=== PATIENT | female | born 2000 | race Caucasian/White ===

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

== ENCOUNTER → 2020-02-05 12:24 | Outpatient (CLI) | payer MEDICAID, SELFPAY ==
[2020-02-05 14:22] LABS: HCG,Quantitative 62591 mIU/ml (0-5.42)
== END ==
PROVIDERS: Visit Provider Obstetrics & Gynecology
DX: Z32.00 Encounter for pregnancy test, result unknown (principal)
CPT/HCPCS: 36415; 84702

== ENCOUNTER → 2020-02-12 13:45 | Outpatient (CLI) | payer MEDICAID, SELFPAY ==
--- NOTE | 2020-02-12 13:45 | US_ITS ---
PROCEDURE: US OB TRANSVAGINAL CLINICAL INDICATION: US OB Dates COMPARISON: US US OB FOLLOW UP from 06/05/2019 FINDINGS: An intrauterine gestational sac is present with a pole with a crown-rump length of 1.56cm correlating to gestational age of 8weeks. heart tones are present with an FHR of 164bpm. Yolk sac is noted. There is a 1.8 cm corpus luteum cyst on the right IMPRESSION: Live IUP at 8 weeks Estimated due date by Ultrasound is 09/23/2020 Dictated by: Gabriel Lanier MD 02/12/2020 16:00 Gabriel Lanier MD in [facility] 02/12/2020 16:00
== END ==
PROVIDERS: PCP Nurse Practitioner; Visit Provider Obstetrics & Gynecology
DX: O26.841 Uterine size-date discrepancy, first trimester (principal)
CPT/HCPCS: 76817

== ENCOUNTER → 2020-02-16 10:40 | Outpatient (CLI) | payer MEDICAID, SELFPAY ==
[2020-02-16 11:56] LABS: Basophils % 0.4 % (0.1-2.0); Eosinophils # 0.1 K/mm3 (0.0-0.4); Eosinophils % 0.7 % (0.1-12.0); Hematocrit 36.8 % (37.0-47.0); Hemoglobin 12.1 g/dL (12.2-16.2); Lymphocytes # 2.4 K/mm3 (0.7-4.5); Lymphocytes % 31.5 % (10-50); Mean Corpuscular Hemoglobin 28.8 pg (27.0-31.2); Mean Corpuscular Volume 87.3 fl (81-99); Mean Platelet Volume 8.2 fl (7.4-10.4); Monocytes # 0.4 K/mm3 (0.1-1.0); Monocytes % 4.9 % (1.7-9.3); Neutrophils # 4.7 K/mm3 (1.8-7.8); Neutrophils % 62.5 % (37.0-80.0); Platelet Count 226 K/mm3 (142-424); Red Blood Count 4.21 M/mm3 (4.20-5.40); Red Cell Distribution Width 13.1 % (11.5-17.5); White Blood Count 7.5 K/mm3 (4.5-13.0)
[2020-02-17 13:18] LABS: HIV Screen 4th Generation wRfx Non Reactive (Non Reactive); Hepatitis B Surface Antigen Negative (Negative); Hepatitis C Antibody <0.1 s/co ratio (0.0-0.9); Rapid Plasma Reagin Ab Titer Non Reactive (NonRea<1:1); Rubella Antibodies, IgG 3.95 index (Immune >0.99)
[2020-02-20 12:23] LABS: Neisseria gonorrhoeae, NAA Negative (Negative)
== END ==
PROVIDERS: Visit Provider Obstetrics & Gynecology
DX: Z34.90 Encounter for supervision of normal pregnancy, unspecified, unspecified trimester (principal)
CPT/HCPCS: 36415; 85025; 86592; 86703; 86762; 86850; 87340; 87380; 87491; 87591; G0432

== ENCOUNTER → 2020-05-06 14:31 | Outpatient (CLI) | payer MEDICAID, SELFPAY ==
--- NOTE | 2020-05-06 14:31 | US_ITS ---
PROCEDURE: US OB /MATERNAL DETAIL Referring Doctor: Vera Fry Patient Age:20Y CLINICAL INDICATION: US OB Complete the COMPARISON: US US OB TRANSVAGINAL from 02/12/2020--with CRL at that time = 8 weeks 0 day FINDINGS: Single viable intrauterine gestation. Cephalic position.. Active fetus Placenta: High anteriorplacenta grade 1. No previa There is average amount fluid. The cervix appears satisfactory. Closed and measuring 3.8 7 cm in length. Complete survey performed and was unremarkable on the submitted images as in PACS. Adequate survey scan although specific images of the LVOT and humerus were not included. No discrete anomalies identified on survey imaging by technologist. Active fetus. Three-vessel cord with satisfactory umbilical cord insertion. 4- chamber heart noted. Cine images heart and tracing included Survey of brain & ventricles Unremarkable. Face and neck survey unremarkable. Diaphragm and chest views unremarkable. Abdomen: Both kidneys noted and unremarkable. Stomach noted and satisfactory. Spine: Survey of the spine satisfactory with no anomalies identified nor imaged. Both arms and legs noted. Appears to be a most likely female fetus Amniotic Fluid: Adequate. Maternal adnexa: No encountered additional findings. Measurements: Average ultrasound age 20weeks 1day. Gestational Age 20weeks 1day Estimated due date by ultrasound age 0509/22/2020. Estimated weight 326ggrams. BPD = 20 week 2 day OFD = 20 week 4 day HC = 19 week 5 day AC = 20 weeks 0 day FL = 20 week 1 day Growth Percentile= 43Percent% Heart Rate = 150bpm Cerebellum = 20 week 1 day; nuchal fold 1.82 mm Humerus = no humerus measurements included on image set HC/AC is 1.17 CI is 0.78 FL/BPD is 0.68 FL/AC is 0.22 IMPRESSION: Single viable intrauterine gestation Cephalic presentation. Anterior high placenta. 20 weeks 1 day Average Ultrasound Age. Estimated due date by ultrasound age 0509/22/2020. Today's anatomical survey-unremarkable WNL Dictated by: Buddy Moya MD 05/08/2020 11:09 Buddy Moya MD in [place] 05/08/2020 11:09
== END ==
PROVIDERS: PCP Nurse Practitioner; Visit Provider Obstetrics & Gynecology
DX: Z36.0 Encounter for antenatal screening for chromosomal anomalies (principal)
CPT/HCPCS: 76811

== ENCOUNTER → 2020-07-04 09:16 | Outpatient (CLI) | payer MEDICAID, SELFPAY ==
[2020-07-04 10:15] LABS: Basophils % 0.2 % (0.1-2.0); Eosinophils # 0.1 K/mm3 (0.0-0.4); Eosinophils % 1.1 % (0.1-12.0); Hematocrit 36.3 % (37.0-47.0); Hemoglobin 11.8 g/dL (12.2-16.2); Lymphocytes # 2.4 K/mm3 (0.7-4.5); Lymphocytes % 23.4 % (10-50); Mean Corpuscular HGB Conc 32.5 g/dL (31.8-35.4); Mean Corpuscular Hemoglobin 29.1 pg (27.0-31.2); Mean Corpuscular Volume 89.6 fl (81-99); Mean Platelet Volume 8.9 fl (7.4-10.4); Monocytes # 0.4 K/mm3 (0.1-1.0); Monocytes % 4.1 % (1.7-9.3); Neutrophils # 7.3 K/mm3 (1.8-7.8); Neutrophils % 71.2 % (37.0-80.0); Platelet Count 221 K/mm3 (142-424); Red Blood Count 4.05 M/mm3 (4.20-5.40); Red Cell Distribution Width 14.2 % (11.5-17.5); White Blood Count 10.2 K/mm3 (4.5-13.0)
[2020-07-04 10:33] LABS: Glucose,Fasting 92 mg/dl (74-100)
[2020-07-04 11:23] LABS: Glucose 1 Hour 119 mg/dL (74-100)
== END ==
PROVIDERS: Visit Provider Obstetrics & Gynecology
DX: Z34.90 Encounter for supervision of normal pregnancy, unspecified, unspecified trimester (principal)
CPT/HCPCS: 36415; 82951; 85025

== ENCOUNTER → 2020-08-02 14:10 | Outpatient (CLI) | payer MEDICAID, SELFPAY ==
--- NOTE | 2020-08-02 14:10 | US_ITS ---
PROCEDURE: US OB FOLLOW UP CLINICAL INDICATION: SGA FINDINGS: The following parameters are obtained: There is a single live fetus present which is in cephalic presentation. The cervix is closed and measures 4 cm. Average ultrasound age is Average 32weeks 5days Estimated due date by ultrasound is 09/22/2020. Estimated weight is 1,896g. This is 25 percentile BPD: 33weeks 6days OFD: 32 weeks 6 days HC: 33weeks AC: 32weeks FL: 31weeks 4days heart rate: 138bpm bpm. HC/AC: 1.07 Cephalic index: 0.8 FL/BPD: 0.72 FL/AC: 0.22 Amniotic fluid index: 11.76cm The femur length is 31weeks 4days No obvious anomalies evident. Placenta: Anterior and grade 1 Cervix: Closed measuring 4 cm IMPRESSION: There is a single live fetus present in cephalic presentation. Average ultrasound age 32 weeks 5 days with an estimated weight 1896 g which is 25th percentile percentile. Normal amniotic fluid index of 12 cm. Dictated by: Gabriel Lanier MD 08/02/2020 16:38 Gabriel Lanier MD in [place] 08/02/2020 16:38
== END ==
PROVIDERS: PCP Nurse Practitioner; Visit Provider Obstetrics & Gynecology
DX: O36.5990 Maternal care for other known or suspected poor fetal growth, unspecified trimester, not applicable or unspecified (principal)
CPT/HCPCS: 76816

== ENCOUNTER → 2020-08-26 16:04 | Outpatient (CLI) | payer MEDICAID, SELFPAY | PROVIDERS: Visit Provider Obstetrics & Gynecology | DX: Z34.90 Encounter for supervision of normal pregnancy, unspecified, unspecified trimester (principal) | CPT/HCPCS: 86403 ==

== ENCOUNTER → 2020-09-11 09:55 | Outpatient (CLI) | payer MEDICAID, SELFPAY ==
[2020-09-11 10:35] LABS: Basophils % 0.2 % (0.1-2.0); Eosinophils # 0.1 K/mm3 (0.0-0.4); Eosinophils % 0.6 % (0.1-12.0); Hemoglobin 10.6 g/dL (12.2-16.2); Lymphocytes # 2.6 K/mm3 (0.7-4.5); Lymphocytes % 28.4 % (10-50); Mean Corpuscular HGB Conc 34.1 g/dL (31.8-35.4); Mean Corpuscular Hemoglobin 28.5 pg (27.0-31.2); Mean Corpuscular Volume 83.5 fl (81-99); Mean Platelet Volume 9.4 fl (7.4-10.4); Monocytes # 0.4 K/mm3 (0.1-1.0); Monocytes % 4.2 % (1.7-9.3); Neutrophils # 6.1 K/mm3 (1.8-7.8); Neutrophils % 66.7 % (37.0-80.0); Platelet Count 202 K/mm3 (142-424); Red Blood Count 3.71 M/mm3 (4.20-5.40); Red Cell Distribution Width 13.7 % (11.5-17.5); White Blood Count 9.2 K/mm3 (4.5-13.0)
[2020-09-11 11:06] LABS: Chloride 107 mmol/L (98-107)
[2020-09-11 11:07] LABS: Potassium 4.5 mmoL/L (3.5-5.1); Sodium 134 mmol/L (136-145)
[2020-09-11 11:09] LABS: Alanine Aminotransferase 11 U/L (12-78); Alkaline Phosphatase 167 U/L (38-126); Aspartate Amino Transferase 21 U/L (14-36); Bilirubin,Total 0.6 mg/dl (0.2-1.3); Blood Urea Nitrogen 8 mg/dl (7-17); Estimated Glomerular Filt Rate 203 ml/min (>60); GFR (African American) 246 ML/MIN (>60)
[2020-09-11 11:10] LABS: Albumin Level 2.9 g/dl (3.5-5.0); Anion Gap 8.5 mEq/L (5-15); Calcium 8.3 mg/dl (8.4-10.2); Carbon Dioxide 23 mmol/L (22.0-30.0); Globulin 2.9 g/dL (1.3-3.2); Glucose 82 mg/dl (74-100); Total Protein,Serum 5.8 g/dl (6.3-8.2)
== END ==
PROVIDERS: Visit Provider Obstetrics & Gynecology
DX: Z34.90 Encounter for supervision of normal pregnancy, unspecified, unspecified trimester (principal)
CPT/HCPCS: 36415; 80053; 85025; 86850; U0003

== ENCOUNTER 2020-09-12 05:45 | Inpatient (IN) | payer MEDICAID, SELFPAY ==
[2020-09-12] VITALS (19 sets, daily range): BP systolic 116–161; BP diastolic 60–99; PULSE 60–80; RESP 12–20; TEMP 36.1–36.9; O2SAT 96–100; BMI 45.7
--- NOTE | 2020-09-12 07:46 | HMH.OBAPHP ---
OB - H&P: HPI Antepartum - History of Present Illness Chief complaint: repeat c section History of present illness: 20 yo @ 38 07/14 admitted for repeat CS Procedure was initially scheduled at 39 wks but was moved up due to gestational hypertension Irregular contractions but no signs of labor No LOF or vaginal bleeding Normal movement [facility] History Medical History: Reports:: Anxiety, Depression, Gastroesophageal Reflux Disease(GERD), Migraine *Have you ever received a pneumonia vaccine?: No *Have you received a flu vaccine this season?: No Other Medical History: Reports: Hypothyroidism, Other Laterality Cases: Bilateral: Tonsillectomy Other Surgeries: Yes: (failure to progress) Amputation: No Fractures: Yes - *Social History Smoking Status: Never smoker Alcohol Intake: never Alcohol Intake Frequency:: holidays/special occasions only Substance Use Type: denies use *Occupational Status:: unemployed Housing: house Household Members: family *Travel in the last 8 weeks: None - Psychiatric History Pschychiatric History:: Reports:: Anxiety, Depression Family Hx:: No significant family history Para: 1 Review of Systems - Review of Systems Review of systems:: pertinent systems reviewed and negative unless documented below - *Genitourinary Reports other (irregular contractions), Denies abnormal vaginal bleeding Meds Home Medications Medication Instructions Recorded Confirmed Type prenat.vits,nickie,[id number] 1 tab PO DAILY 02/16/20 09/12/20 History Esomeprazole Magnesium 20 mg PO DAILY 09/12/20 09/12/20 History Allergies Allergy/AdvReac Type Severity Reaction Status Date / Time No Known Allergies Allergy Verified 09/09/20 10:44 OB - H&P: Exam - Physical Exam Vital signs: Temp Pulse Resp BP Pulse Ox 98.5 F 67 20 139/95 H 98 09/12/20 07:44 09/12/20 07:44 09/12/20 07:44 09/12/20 07:44 09/12/20 07:44 - Constitutional no acute distress - Routine HEENT Exam Head: Present: normocephalic, atraumatic Eye: Absent: conjunctival icterus ENT: Present: mucous membranes moist - Routine Neck Exam Present: supple - Routine Chest/Breast/Axilla Exam Chest wall: Absent: tenderness - Routine Respiratory Exam Present: CTA bilaterally - Routine Cardiovascular Exam Present: RRR - Routine Abdominal Exam Present: soft. Absent: tenderness, distended - Routine Exam Comments: deferred - Routine Extremities Exam Present: edema (1+) - Routine Back/Spine/Pelvis Exam Back/Spine: Absent: CVA tenderness - Routine Skin Exam Absent: rash - Routine Neurological Exam Present: alert, oriented X3 - Routine Psychiatric Exam Present: normal affect OB - Results - Labs Labs: Urine 09/12/20 Range/Units 06:00 Urine Color Yellow (Yellow) Urine Appearance Sl cloudy (Clear) Urine pH 6.0 (5.0-8.5) Ur Specific [place] >= 1.030 (1.005-1.030) Urine Protein Negative (Negative) Urine Glucose (UA) Negative (Negative) OB - A/P Antepartum (1) 38 weeks gestation of Status: Acute (2) Short interval between pregnancies affecting , antepartum Status: Acute (3) Gestational hypertension Status: Acute (4) Previous section Status: Acute (5) Obesity, morbid, BMI 40.0-49.9 Status: Acute - Additional Plan Additional Information:: Admission for repeat CS status reassuring
[2020-09-12 07:58] LABS: Microscopic, Urine URINE MICROSCOPIC (MICROSCOPIC)
[2020-09-12 07:59] LABS: Appearance,Urine SL CLOUDY (Clear); Bilirubin,Urine Negative (Negative); Blood, Urine Negative (Negative); Color,Urine YELLOW (Yellow); Glucose,Urine (UA) Negative (Negative); Ketones,Urine Negative (Negative); Leukocyte Esterase,Urine Negative (Negative); Nitrate,Urine Negative (Negative); Protein,Urine Negative (Negative); Specific Gravity, Urine >= 1.030 (1.005-1.030)
[2020-09-12 08:22] LABS: Barbiturates Screen,Urine Negative ng/ml (<200)
[2020-09-12 08:23] LABS: Amphetamine/Metha Screen,Urine Negative ng/ml (<1000); Benzodiazepines Screen,Urine Negative ng/ml (<200)
[2020-09-12 08:24] LABS: Cocaine Screen,Urine Negative ng/ml (<300)
[2020-09-12 08:25] LABS: Cannabinoid Screen,Urine Negative ng/ml (<50); Methadone Screen,Urine Negative ng/ml (<300)
[2020-09-12 08:26] LABS: Phencyclidine Screen,Urine Negative ng/ml (<25)
[2020-09-12 08:27] LABS: Opiate Screen,Urine Negative ng/ml (<300)
--- NOTE | 2020-09-12 10:59 | HMH.OPNOTE ---
Date of procedure: 09/12/20 Pre-op Diagnosis:: 1. 38 3/7 weeks gestation 2. Gestational hypertension 3. Previous C Section 4. Maternal obesity Post-op Diagnosis:: same Procedure performed:: Low transverse c section Surgeon:: Vera Fry MD Blueprint Developer(s):: Payal Enrique CONSTRUCTION CODE ADMINISTRATOR:: Other Anesthesia: spinal Estimated blood loss (mL): 600 Operative findings:: moderate pelvic adhesions vigorous liveborn infant Operative note:: The patient was taken to the OR and spinal was administered without difficulty. She was prepped and draped in normal sterile fashion. A pfannenstiel skin incision was made with the scalpel and carried down to the fascia. The fascia was incised in the midline and sharply dissected off the rectus muscles. The muscles were in the midline and the peritoneum was entered sharply and extended bluntly. The bladder adhesions were moderate and extended up beyond the level of the lower uterine segment. Extensive sharp lysis of adhesions were performed until the bladder flap could be created. The uterus was incised in the lower uterine segment in a transverse fashion and extended bluntly. Amniotomy was performed and clear fluid noted. The infant was delivered in controlled fashion, without complication or shoulder dystocia. A nuchal cord x 1 was reduced during delivery. The infant was vigorous at and handed to awaiting pediatricians for evaluation after cord clamped and cut. Cord blood was collected and a cord segment was preserved. The placenta was manually extracted and noted to be intact. The uterus was repaired with 0-vicryl in a running/locked fashion. The peritoneum was closed with 2-0 vicryl in a running fashion. The fascia was closed with #1 vicryl in a running fashion. The subcutaneous fat was closed with 2-0 vicryl in an interrupted fashion. The skin was closed with stratafix suture. The patient tolerated the procedure well. Sponge, lap, needle and instrument counts were correct x 2. She was taken to PACU awake and in stable condition. Condition: stable Disposition: PACU Specimens:: placenta Complications:: none
--- NOTE | 2020-09-12 10:59 | HMH.PHAVTE ---
[facility] Pharmacy VTE Monitoring - Patient Demographics Admission date: 09/12/20 Report Date: 09/12/20 Time: 10:59 Allergies/Adverse Reactions: Patient Allergies No Known Allergies Allergy (Verified 09/09/20 10:44) Height: 1.6 m Weight: 117.027 kg Patient Problems: Current Active Problems 38 weeks gestation of (Acute) Gestational hypertension (Acute) Short interval between pregnancies affecting , antepartum (Acute) Previous section (Acute) Obesity, morbid, BMI 40.0-49.9 (Acute) - VTE Risk Clinical Trial Participant: No - Prophylaxis VTE Prophylaxis Ordered?: Yes Types of VTE Prophylaxis: IPCS Knee High (POST OP)
--- NOTE | 2020-09-12 13:21 | P.PN_ITS ---
[facility] Anesthesia Checklist - Patient Identification Patient Identification: Arm Band - Structural Data Admitted From: Inpatient Planned Operative Procedure/s: Scheduled C section Consent for Planned Operative Procedure(s) Verified: Yes Verified Documents: Surgical Consent, History and Physical - NPO Status Verified Time NPO: 00:00 - Airway Assessment C-Spine Mobility Assessed: Yes TMJ Mobility Assessed: Yes Dentition: Good Dentition - Neurological Assessment Level of Consciousness: Awake, Alert - Anesthesia Plan Anesthesia Risk discussed: Yes Anesthesia Plan: Verified ASA Class: II Anesthesia Type: Spinal [facility] History Medical History: Reports:: Anxiety, Depression, Gastroesophageal Reflux Disease(GERD), Migraine *Have you ever received a pneumonia vaccine?: No *Have you received a flu vaccine this season?: No Other Medical History: Reports: Hypothyroidism, Other Anesthesia experience/problems:: None Laterality Cases: Bilateral: Tonsillectomy Other Surgeries: Yes: (failure to progress) Amputation: No Fractures: Yes - *Social History Smoking Status: Never smoker Alcohol Intake: never Alcohol Intake Frequency:: holidays/special occasions only Substance Use Type: denies use *Occupational Status:: unemployed Housing: house Household Members: family *Travel in the last 8 weeks: None - Psychiatric History Pschychiatric History:: Reports:: Anxiety, Depression Family Hx:: No significant family history Para: 1
--- NOTE | 2020-09-12 13:22 | HMH.ANESI ---
[facility] Anesthesia Record Part I Intake, IV Amount: 2,000 Estimated blood loss (mL): 600 Urine output (mL): 200 Blood Products used (#): none Blood Pressure: 128/72 SaO2: 97 Pulse Rate: 71 Respiratory Rate: 12 Temperature: 97.1 F Patient is:: Awake, Drowsy Stable to PACU at:: 10:12
[2020-09-12 15:25] LABS: Microscopic,Cath URINE MICROSCOPIC (MICROSCOPIC)
[2020-09-12 15:30] LABS: Appearance,Urine/Cath CLEAR (Clear); Bilirubin,Cath Negative (Negative); Blood, Urine/Cath TRACE-I (Negative); Color,Urine/Cath YELLOW (Yellow); Glucose,Urine/Cath (UA) Negative (Negative); Ketones,Urine/Cath Negative (Negative); Leukocyte Esterase,Cath Negative (Negative); Nitrate,Cath Negative (Negative); PH,Urine/Cath 6.5 (5.0-8.5); Protein,Urine/Cath Negative (Negative); Urobilinogen,Cath 0.2 EU/dl (0.2)
[2020-09-12 15:37] LABS: Bacteria,Urine/Cath TRACE /lpf; RBC,Urine/Cath Occasional # /hpf (0-3); Squamous Epithelial Ur./Cath Occasional #/hpf (0-5); WBC,Urine/Cath Occasional #/hpf (0-3)
[2020-09-13 06:46] LABS: Hematocrit 27.1 % (37.0-47.0)
[2020-09-13 08:00] VITALS: BP 123/58; PULSE 80; RESP 18; TEMP 36.5; O2SAT 97
--- NOTE | 2020-09-13 09:31 | HMH.ANESII ---
[facility] Anesthesia Record Part II Discharge Time: 10:32 Destination: Obstetric PACU nurse assessment reviewed?: Yes Patient Condition:: Good Anesthesia Complications:: None Swallowing reflex intact?: Yes Cyanosis?: No Blood Pressure: 126/78 Pulse Rate: 66 Temperature: 97 F Mental Status: Alert & Oriented Pain level:: 0 Nausea and/or vomitting:: None Intake, IV Amount: 0
[2020-09-13 09:32] VITALS: BP 126/78; PULSE 66; TEMP 36.1
--- NOTE | 2020-09-13 11:16 | P.PN_ITS ---
Internal Medicine - PN: Subj *Date: 09/13/20 *Time: 11:16 Interval history: POD #1 repeat CS no unusual complaints tolerating regular diet ambulating and voiding without difficulty pain control sufficient asymptomatic with acute blood loss anemia Exam Vital signs and Labs for Last 24 Hours: Temp Pulse Resp BP Pulse Ox 97 F L 66 18 126/78 97 09/13/20 09:32 09/13/20 09:32 09/13/20 08:00 09/13/20 09:32 09/13/20 08:00 Laboratory Results - last 24 hr 09/12/20 09:00: Urine Color Yellow, Urine Appearance Clear, Urine pH 6.5, Ur Specific [place] 1.010, Urine Protein Negative, Urine Glucose (UA) Negative, Urine Ketones Negative, Urine Blood Trace-i, Urine Nitrate Negative, Urine Bilirubin Negative, Urine Urobilinogen 0.2, Ur Leukocyte Esterase Negative, Urine RBC Occasional, Urine WBC Occasional, Ur Squamous Epith Cells Occasional, Urine Bacteria Trace 09/13/20 06:30: Hgb 9.0 L, Hct 27.1 L I & O for Last 24 hours: Intake & Output 09/10/20 09/11/20 09/12/20 09/13/20 11:59 11:59 11:59 11:59 Intake Total 1999 Balance 1999 Weight 258 lb 0.006 oz Narrative: CONSTITUTIONAL: no acute distress HEENT: mucous membranes moist PULMONARY: breathing unlabored without audible wheezes CV: no tachycardia or visible JVD; normal LE peripheral pulses ABD: soft, ND; appropriately tender but no rebound/guarding : fundus firm at/below umbilicus SKIN: incision well approximated with no drainage, erythema or induration EXT: 1+ edema LEs NEURO: alert/oriented, no altered mental status PSYCH: appropriate mood and demeanor Assessment and Plan (1) 38 weeks gestation of Status: Acute Category: Medical Code(s): Z3A.38 - 38 weeks gestation of (2) Short interval between pregnancies affecting , antepartum Status: Acute Category: Medical Code(s): O09.899 - Supervision of other high risk pregnancies, unspecified trimester (3) Gestational hypertension Status: Acute Category: Medical Code(s): O13.9 - Gestational [- induced] hypertension without significant proteinuria, unspecified trimester (4) Previous section Status: Acute Category: Surgical Code(s): Z98.891 - History of uterine scar from previous surgery (5) Obesity, morbid, BMI 40.0-49.9 Status: Acute Category: Medical Code(s): E66.01 - Morbid (severe) obesity due to excess calories (6) Acute blood loss anemia Status: Acute Category: Medical Code(s): D62 - Acute posthemorrhagic anemia - Assessment and plan all Dx Assessment and Plan for all problems:: Routine postop care FeSO4 supplementation
[2020-09-13 11:58] VITALS: BP 138/68; PULSE 76; RESP 18; TEMP 36.4; O2SAT 96
[2020-09-13 16:00] VITALS: BP 144/72; PULSE 82; RESP 18; TEMP 36.5; O2SAT 99
[2020-09-13 19:36] VITALS: BP 133/83; PULSE 74; RESP 18; TEMP 36.8; O2SAT 100
[2020-09-14 00:12] VITALS: BP 144/87; PULSE 78; RESP 18; TEMP 36.7; O2SAT 97
[2020-09-14 05:00] VITALS: BP 167/80; PULSE 89; RESP 18; TEMP 36.7; O2SAT 99
[2020-09-14 08:02] VITALS: BP 138/85; PULSE 100; RESP 18; TEMP 36.5; O2SAT 98
--- NOTE | 2020-09-14 12:26 | HMH.DCSUM ---
General - General Admission date:: 09/12/20 Discharge date: 09/14/20 Hospital Course Hospital Course: Admitted for repeat c section at 38 weeks for gestational hypertension bp stable tolerating regular diet ambulating and voiding without difficulty asymptomatic with anemia discharged home on pod #2 in stable condition Rhogam Administration: Not Indicated Objective Vital signs: Temp Pulse Resp BP Pulse Ox 97.7 F 100 H 18 138/85 98 09/14/20 08:02 09/14/20 08:02 09/14/20 08:02 09/14/20 08:02 09/14/20 08:02 Narrative: CONSTITUTIONAL: no acute distress HEENT: mucous membranes moist PULMONARY: breathing unlabored without audible wheezes CV: no tachycardia or visible JVD; normal LE peripheral pulses ABD: soft, ND; appropriately tender but no rebound/guarding : fundus firm at/below umbilicus SKIN: incision well approximated with no drainage, erythema or induration EXT: 1+ edema LEs NEURO: alert/oriented, no altered mental status PSYCH: appropriate mood and demeanor without anxiety/depression DS: Diagnosis - Discharge Diagnosis (1) 38 weeks gestation of Status: Acute (2) Short interval between pregnancies affecting , antepartum Status: Acute (3) Gestational hypertension Status: Acute (4) Previous section Status: Acute (5) Obesity, morbid, BMI 40.0-49.9 Status: Acute (6) Acute blood loss anemia Status: Acute Discharge Plan - Patient Discharge Instructions ACTIVITY: Continue current activity DIET: regular diet Additional Instructions: No heavy lifting, no strenuous activity. Nothing in the vagina for 6 weeks. No driving for 2 weeks or while taking prescription narcotics. Patient Instructions: Depression, Hemorrhage, DI for , DI for Pre-eclampsia, Surgical Site Infection, [facility] Post Discharge Instructions, Preventing the Spread of Coronavirus Discharge Instructions - Follow up Plan Follow up with: Vera Fry MD [Staff Physician] - Disposition: Home, Self-Care Condition at discharge:: Stable Home Medications: Home Medications Medication Instructions Recorded Confirmed Type prenat.vits,nickie,chx-ottu-yesju 1 tab PO DAILY 02/16/20 09/12/20 History Esomeprazole Magnesium 20 mg PO DAILY 09/12/20 09/12/20 History Ibuprofen [Motrin 400mg 800 mg PO Q6HP PRN #40 tab 09/14/20 Rx tablet] Oxycodone HCl [OxyIR 5mg tablet] 10 mg PO Q4HP PRN #30 tablet 09/14/20 Rx Prescriptions/Medication Reconciliation: New Ibuprofen [Motrin 400mg tablet] 800 mg PO Q6HP PRN #40 tab PRN Reason: MILD TO MODERATE PAIN Oxycodone HCl [OxyIR 5mg tablet] 10 mg PO Q4HP PRN #30 tablet PRN Reason: Moderate To Severe Pain Continued prenat.vits,nickie,[id number] 1 tab PO DAILY Esomeprazole Magnesium 20 mg PO DAILY - Problem Reconciliation Problems Reviewed?: Yes
== END 2020-09-14 14:22 | disposition home or self-care (01) | DRG 788 ==
PROVIDERS: Admitting Provider Obstetrics & Gynecology; PCP Nurse Practitioner; Visit Provider Obstetrics & Gynecology
PROC: 10D00Z1 Extraction of Products of Conception, Low, Open Approach (ICD-10-PCS; CPT 59514; principal; 2020-09-12 08:30)
DX: O13.3 Gestational [pregnancy-induced] hypertension without significant proteinuria, third trimester (principal); O34.211 Maternal care for low transverse scar from previous cesarean delivery; N85.8 Other specified noninflammatory disorders of uterus; Z3A.37 37 weeks gestation of pregnancy; O69.81X0 Labor and delivery complicated by cord around neck, without compression, not applicable or unspecified; Z37.0 Single live birth
CPT/HCPCS: 59514; 36415; 59025; 80053; 80305; 81001; 85014; 85018; 85025; 86850; J2405; U0003

== ENCOUNTER 2020-10-18 23:41 | Emergency (ER) | payer MEDICAID, SELFPAY ==
[2020-10-18 23:58] LABS: Microscopic, Urine URINE MICROSCOPIC (MICROSCOPIC)
[2020-10-19] VITALS: BP 148/90; PULSE 90; RESP 16; TEMP 37; O2SAT 100; BMI 42.1
--- NOTE | 2020-10-19 00:01 | CT_ITS ---
PROCEDURE INFORMATION: Exam: CT Abdomen And Pelvis With Contrast Exam date and time: 10/19/2020 12:01 AM Age: 20 years old Clinical indication: Nausea and vomiting; Abdominal pain; Localized; Prior surgery; Surgery date: 1-6 months; Patient HX: Upper abd pain with n/v for 4 hrs, csection 5 weeks ago TECHNIQUE: Imaging protocol: Computed tomography of the abdomen and pelvis with contrast. Radiation optimization: All CT scans at this facility use at least one of these dose optimization techniques: automated exposure control; mA and/or kV adjustment per patient size (includes targeted exams where dose is matched to clinical indication); or iterative reconstruction. Contrast material: ISOVUE; Contrast volume: 75 ml; Contrast route: IV; COMPARISON: US OB FOLLOW UP 08/02/2020 2:16 PM FINDINGS: Liver: Normal. No mass. Gallbladder and bile ducts: Normal. No calcified stones. No ductal dilation. Pancreas: Normal. No ductal dilation. Spleen: Normal. No splenomegaly. Adrenal glands: Normal. No mass. Kidneys and ureters: Normal. No hydronephrosis. Stomach and bowel: Unremarkable. No obstruction. No mucosal thickening. Appendix: The appendix is not definitely identified, but there are no primary or secondary CT findings to suggest a diagnosis of acute appendicitis. Intraperitoneal space: Unremarkable. No free air. No significant fluid collection. Vasculature: Unremarkable. No abdominal aortic aneurysm. Lymph nodes: Unremarkable. No enlarged lymph nodes. Urinary bladder: Unremarkable as visualized. Reproductive: Left ovarian cystic structure compatible with dominant follicle measures 2.7 cm in diameter. Postsurgical changes compatible with , with nonspecific inflammatory changes at the anterior aspect of the uterus without rim enhancing fluid collections. Bones/joints: Unremarkable. No acute fracture. Soft tissues: Normal. IMPRESSION: Postsurgical changes compatible with , with nonspecific inflammatory changes at the anterior aspect of the uterus without rim enhancing fluid collections.
[2020-10-19 00:02] LABS: Urine Pregnancy, HCG Qual. Negative (Negative)
[2020-10-19 00:12] LABS: Appearance,Urine SL CLOUDY (Clear); Bilirubin,Urine Negative (Negative); Blood, Urine 3+ (Negative); Color,Urine YELLOW (Yellow); Glucose,Urine (UA) Negative (Negative); Ketones,Urine Negative (Negative); Leukocyte Esterase,Urine Negative (Negative); Nitrate,Urine Negative (Negative); PH,Urine 5.5 (5.0-8.5); Protein,Urine TRACE (Negative); Specific Gravity, Urine >= 1.030 (1.005-1.030)
[2020-10-19 00:13] LABS: RBC,Urine 50-100 #/hpf (0-3)
[2020-10-19 00:14] LABS: Bacteria,Urine 2+ /lpf; Mucus,Urine 2+ /lpf
[2020-10-19 00:17] LABS: MANUAL DIFFERENTIAL MANUAL DIFFERENTIAL (MANUAL DIFF)
[2020-10-19 00:24] LABS: Basophils % 0.3 % (0.1-2.0); Eosinophils # 0.1 K/mm3 (0.0-0.4); Eosinophils % 0.6 % (0.1-12.0); Hematocrit 30.8 % (37.0-47.0); Hemoglobin 10.3 g/dL (12.2-16.2); Lymphocytes # 2.6 K/mm3 (0.7-4.5); Lymphocytes % 22.2 % (10-50); Mean Corpuscular HGB Conc 33.4 g/dL (31.8-35.4); Mean Corpuscular Hemoglobin 27.4 pg (27.0-31.2); Mean Corpuscular Volume 82.1 fl (81-99); Mean Platelet Volume 8.5 fl (7.4-10.4); Monocytes # 0.4 K/mm3 (0.1-1.0); Monocytes % 3.7 % (1.7-9.3); Neutrophils # 8.6 K/mm3 (1.8-7.8); Neutrophils % 73.1 % (37.0-80.0); Platelet Count 253 K/mm3 (142-424); Red Blood Count 3.75 M/mm3 (4.20-5.40); Red Cell Distribution Width 13.4 % (11.5-17.5); White Blood Count 11.7 K/mm3 (4.5-13.0)
[2020-10-19 00:27] LABS: Alanine Aminotransferase 19 U/L (12-78); Albumin Level 4.1 g/dl (3.5-5.0); Albumin/Globulin Ratio 1.3 (1.1-1.8); Alkaline Phosphatase 130 U/L (38-126); Amylase 39 U/L (30-110); Anion Gap 9.9 mEq/L (5-15); Aspartate Amino Transferase 30 U/L (14-36); Bilirubin,Total 0.5 mg/dl (0.2-1.3); Blood Urea Nitrogen 12 mg/dl (7-17); Calcium 8.1 mg/dl (8.4-10.2); Carbon Dioxide 28 mmol/L (22.0-30.0); Chloride 106 mmol/L (98-107); Creatinine Clearance Estimated 93 mL/min (50-200); Estimated Glomerular Filt Rate 91 ml/min (>60); GFR (African American) 111 ML/MIN (>60); Globulin 3.1 g/dL (1.3-3.2); Glucose 96 mg/dl (74-100); Lipase 58 U/L (23-300); Potassium 3.9 mmoL/L (3.5-5.1); Sodium 140 mmol/L (136-145); Total Protein,Serum 7.2 g/dl (6.3-8.2)
[2020-10-19 00:32] LABS: C-Reactive Protein 51.1 mg/L (0-4)
[2020-10-19 00:48] LABS: Eosinophils % 1 % (0-3); Lymphocytes % 20 % (10-50); Monocytes % 7 % (2-9); Neutrophils % 72 % (42-76); Platelet Estimate Normal; RBC Morphology Normal; Total Cells Counted 100
[2020-10-19 00:50] LABS: Procalcitonin < 0.030 ng/mL (0.0-2.0)
[2020-10-19 01:03] LABS: Erythrocyte Sedimentation Rate 101 mm/hr (0-20)
[2020-10-19 01:11] VITALS: BP 107/58; PULSE 76; O2SAT 98
[2020-10-19 01:30] VITALS: BP 110/65; PULSE 84; O2SAT 98
--- NOTE | 2020-10-19 01:39 | HMH.EDNVD ---
ED Disposition Clinical Impression: Abdominal pain Qualifiers: Abdominal location: right upper quadrant Qualified Code(s): R10.11 - Right upper quadrant pain UTI (urinary tract infection) Qualifiers: Urinary tract infection type: site unspecified Hematuria presence: without hematuria Qualified Code(s): N39.0 - Urinary tract infection, site not specified Disposition: Home, Self-Care Condition on Discharge: Good Instructions: DI for Acute Abdominal Pain Additional Instructions: fluids and use meds and see surg for follow up and call pcp about urine culture Prescriptions: cephALEXin [cephALEXin 500mg capsule*] 500 mg PO TID #30 cap Transmission Status: Pending to [facility] Referrals: Bre Nunes MD [Primary Care Provider] - Grzegorz Darden MD [Staff Physician] - - Critical Care Critical Care Time: No Attestation: On 10/18/20, the high probability of a clinically significant, sudden or life threatening deterioration of the following system(s) required my full and direct attention, intervention and personal management. The time I documented below is in addition to time spent performing reported procedures but includes the following listed in this critical care notation. Medical Decision Making - Medical Records Medical records reviewed: Yes: I reviewed the patient's medical records. - Anand Inquiry Pt receiving controlled substance: No Vital Signs: 10/19/20 00:00 10/19/20 01:11 Temperature 98.6 F Temperature Source Oral Pulse Rate 76 Pulse Rate [Right] 90 Respiratory Rate 16 Blood Pressure 107/58 L Blood Pressure [Right Arm] 148/90 H Blood Pressure Mean [Right Arm] 109 Blood Pressure Source [Right Arm] Automatic Cuff Blood Pressure Position [Right Arm] Supine 02 Sat by Pulse Oximetry 100 98 Oxygen Delivery Method Room Air - Lab Data Lab results reviewed: Yes: I reviewed the patient's lab results. Lab Results 10/18/20 23:53: Urine Color Yellow, Urine Appearance Sl cloudy, Urine pH 5.5, Ur Specific [place] >= 1.030, Urine Protein Trace, Urine Glucose (UA) Negative, Urine Ketones Negative, Urine Blood 3+, Urine Nitrate Negative, Urine Bilirubin Negative, Urine Urobilinogen 1.0, Ur Leukocyte Esterase Negative, Urine RBC 50-100, Urine WBC 5-10, Ur Squamous Epith Cells 3-5, Urine Bacteria 2+, Urine Mucus 2+ 10/18/20 23:53: Urine HCG, Qual Negative 10/19/20 00:03: WBC 11.7, RBC 3.75 L, Hgb 10.3 L, Hct 30.8 L, MCV 82.1, MCH 27.4, MCHC 33.4, RDW 13.4, Plt Count 253, MPV 8.5, Neut % (Auto) 73.1, Lymph % (Auto) 22.2, [place] % (Auto) 3.7, Eos % (Auto) 0.6, Baso % (Auto) 0.3, Neut # (Auto) 8.6 H, Lymph # (Auto) 2.6, [place] # (Auto) 0.4, Eos # (Auto) 0.1, Baso # (Auto) 0.0, Total Counted 100, Neutrophils % (Manual) 72, Lymphocytes % (Manual) 20, Monocytes % (Manual) 7, Eosinophils % (Manual) 1, Platelet Estimate Normal, RBC Morphology Normal 10/19/20 00:03: ESR 101 H 10/19/20 00:03: Sodium 140, Potassium 3.9, Chloride 106, Carbon Dioxide 28, Anion Gap 9.9, BUN 12, Creatinine 0.80, Estimated Creat Clear 93, Estimated GFR 91, Est GFR ( Amer) 111, Glucose 96, Calcium 8.1 L, Total Bilirubin 0.5, AST 30, ALT 19, Alkaline Phosphatase 130 H, C-Reactive Protein 51.1 H, Total Protein 7.2, Albumin 4.1, Globulin 3.1, Albumin/Globulin Ratio 1.3, Amylase 39, Lipase 58 10/19/20 00:03: Procalcitonin < 0.030 Result diagrams: 10/19/20 00:03 10/19/20 00:03 Orders (Tests/Meds): ED MEDICATIONS Generic Name Dose Route Start Last Admin Trade Name Freq PRN Reason Stop Dose Admin Sodium Chloride 1,000 mls @ 999 mls/hr 10/19/20 00:30 10/19/20 00:40 Sod Chlor 0.9% 1000ml Bag IV 10/19/20 01:30 999 mls/hr .Q1H1M LEXI Administration Ceftriaxone Sodium 1 gm/ 50 mls @ 100 mls/hr 10/19/20 00:30 10/19/20 00:52 Sodium Chloride IV 11/02/20 00:29 100 mls/hr Q24H LEXI Administration Protocol Sodium Chloride 8 ml 10/19/20 00:16 Sodium Chloride 0.9% 10ml Vial IV 11/18/20 00:15 NEEDE
[2020-10-19 01:59] VITALS: BP 110/79; PULSE 79; RESP 16; TEMP 37; O2SAT 98
[2020-10-19 02:00] VITALS: BP 115/82; PULSE 71; O2SAT 97
== END 2020-10-19 02:30 | disposition home or self-care (01) ==
PROVIDERS: Emergency Provider Emergency Medicine; PCP Nurse Practitioner
DX: R10.11 Right upper quadrant pain (principal); N39.0 Urinary tract infection, site not specified; F41.8 Other specified anxiety disorders; K21.9 Gastro-esophageal reflux disease without esophagitis; E03.9 Hypothyroidism, unspecified
CPT/HCPCS: 74177; 80053; 81001; 81025; 82150; 83690; 84145; 85007; 85014; 85018; 85048; 85049; 85651; 86140; 87086; 96365; 96366; 96375; 99283; J2405; Q9967

== ENCOUNTER → 2020-11-13 09:43 | Outpatient (CLI) | payer MEDICAID, SELFPAY ==
--- NOTE | 2020-11-13 09:43 | US_ITS ---
PROCEDURE: US GALLBLADDER CLINICAL INDICATION: Right upper quad pain COMPARISON: No exams were available for comparison FINDINGS: Pancreas: Pancreatic tail not well delineated due to overlying bowel gas. Liver: Unremarkable. There is appropriate direction of blood flow within a non dilated portal vein. Right kidney: Unremarkable appearing. No hydronephrosis. Gallbladder: Gallbladder is filled with stones. No gallbladder wall thickening, pericholecystic fluid, or biliary dilatation is evident. Common bile duct is 3 mm. IMPRESSION: Cholelithiasis Dictated by: Gabriel Lanier MD 11/13/2020 11:29 Gabriel Lanier MD in [facility] 11/13/2020 11:29
== END ==
PROVIDERS: PCP Nurse Practitioner; Visit Provider Surgery
DX: R10.11 Right upper quadrant pain (principal)
CPT/HCPCS: 76705

== ENCOUNTER → 2020-11-19 13:01 | Outpatient (CLI) | payer MEDICAID, SELFPAY ==
[2020-11-19 13:20] LABS: Basophils # 0.1 K/mm3 (0-0.2); Basophils % 1.4 % (0.1-2.0); Eosinophils # 0.1 K/mm3 (0.0-0.4); Eosinophils % 1.8 % (0.1-12.0); Hematocrit 34.9 % (37.0-47.0); Hemoglobin 11.4 g/dL (12.2-16.2); Lymphocytes # 2.8 K/mm3 (0.7-4.5); Lymphocytes % 35.4 % (10-50); Mean Corpuscular HGB Conc 32.6 g/dL (31.8-35.4); Mean Corpuscular Hemoglobin 26.7 pg (27.0-31.2); Mean Corpuscular Volume 82.1 fl (81-99); Mean Platelet Volume 8.5 fl (7.4-10.4); Monocytes # 0.3 K/mm3 (0.1-1.0); Monocytes % 3.5 % (1.7-9.3); Neutrophils # 4.5 K/mm3 (1.8-7.8); Neutrophils % 57.9 % (37.0-80.0); Platelet Count 320 K/mm3 (142-424); Red Blood Count 4.25 M/mm3 (4.20-5.40); Red Cell Distribution Width 13.7 % (11.5-17.5); White Blood Count 7.8 K/mm3 (4.5-13.0)
[2020-11-19 13:47] LABS: Urine Pregnancy, HCG Qual. Negative (Negative)
[2020-11-19 13:50] LABS: HCG,Quantitative < 2 mIU/ml (0-5.42)
[2020-11-19 14:12] LABS: Chloride 106 mmol/L (98-107); Sodium 140 mmol/L (136-145)
[2020-11-19 14:13] LABS: Potassium 4.3 mmoL/L (3.5-5.1)
[2020-11-19 14:15] LABS: Alanine Aminotransferase 29 U/L (12-78); Albumin/Globulin Ratio 1.3 (1.1-1.8); Alkaline Phosphatase 163 U/L (38-126); Anion Gap 12.3 mEq/L (5-15); Aspartate Amino Transferase 21 U/L (14-36); Bilirubin,Total 0.4 mg/dl (0.2-1.3); Blood Urea Nitrogen 10 mg/dl (7-17); Calcium 8.5 mg/dl (8.4-10.2); Carbon Dioxide 26 mmol/L (22.0-30.0); Estimated Glomerular Filt Rate 127 ml/min (>60); GFR (African American) 154 ML/MIN (>60); Globulin 3.2 g/dL (1.3-3.2); Glucose 83 mg/dl (74-100); Total Protein,Serum 7.2 g/dl (6.3-8.2)
== END ==
PROVIDERS: Surgery; Visit Provider Obstetrics & Gynecology
DX: Z30.40 Encounter for surveillance of contraceptives, unspecified (principal); K80.20 Calculus of gallbladder without cholecystitis without obstruction
CPT/HCPCS: 36415; 80053; 81025; 84702; 85025

== ENCOUNTER → 2020-12-09 14:40 | Outpatient (CLI) | payer MEDICAID, SELFPAY | PROVIDERS: Visit Provider Surgery | DX: Z01.812 Encounter for preprocedural laboratory examination (principal); Z11.52 Encounter for screening for COVID-19; K80.20 Calculus of gallbladder without cholecystitis without obstruction | CPT/HCPCS: U0003 ==

== ENCOUNTER 2020-12-10 07:01 | Day surgery (SDC) | payer MEDICAID, SELFPAY ==
[2020-12-04 11:14] VITALS: BMI 41.8
[2020-12-10] VITALS (14 sets, daily range): BP systolic 122–155; BP diastolic 71–91; PULSE 54–68; RESP 15–18; TEMP 36.3–43; O2SAT 94–100
[2020-12-10 07:27] LABS: Urine Pregnancy, HCG Qual. Negative (Negative)
--- NOTE | 2020-12-10 08:51 | P.PN_ITS ---
[facility] Anesthesia Checklist - Patient Identification Patient Identification: Arm Band - Structural Data Admitted From: Home Planned Operative Procedure/s: Laparoscopic Cholecystectomy Consent for Planned Operative Procedure(s) Verified: Yes Verified Documents: Surgical Consent, History and Physical - NPO Status Verified Time NPO: 00:00 - Additional verifications Anesthesia Reactions: No Hx Blood Transfusions: No Blood Transfusion Reaction: No - Airway Assessment C-Spine Mobility Assessed: Yes (mp2) TMJ Mobility Assessed: Yes Dentition: Good Dentition - Neurological Assessment Level of Consciousness: Awake, Alert - Anesthesia Plan Anesthesia Risk discussed: Yes Anesthesia Plan: Verified ASA Class: III Anesthesia Type: General [facility] History I have reviewed the patient's past medical history: Yes Medical History: Reports:: Anxiety, Depression, Gastroesophageal Reflux Disease(GERD), Migraine Denies:: Cancer, Diabetes Mellitus Type 1, Diabetes Mellitus Type 2, Internal Pacemaker, MRSA, Seizures *Have you ever received a pneumonia vaccine?: No *Have you received a flu vaccine this season?: No Other Medical History: Reports: Hypothyroidism, Other. Denies: Blood Transfusion Reaction Anesthesia experience/problems:: nac Laterality Cases: Bilateral: Tonsillectomy Other Surgeries: Yes: . No: Pacemaker Amputation: No Fractures: Yes - *Social History Last grade of school completed: High school graduate Smoking Status: Never smoker Alcohol Intake: never Alcohol Intake Frequency:: holidays/special occasions only Substance Use Type: denies use *Occupational Status:: unemployed Housing: house Household Members: family *Travel in the last 8 weeks: None - Psychiatric History Pschychiatric History:: Reports:: Anxiety, Depression Family Hx:: No significant family history
--- NOTE | 2020-12-10 09:33 | XR_ITS ---
PROCEDURE: XR CHOLANGIOGRAM OPERATIVE CLINICAL INDICATION: CHOLANGIOGRAM COMPARISON: No exams were available for comparison FINDINGS: Fluoroscopy time: 26 seconds Single image submitted demonstrates good filling of the common bile duct with contrast flowing into the duodenum. Artifact is noted in the right upper quadrant medially from the trocar obscuring detail in this region and extending to the common duct area. No obvious contrast extravasation. IMPRESSION: Overlying artifact. Common duct has an unremarkable appearance with the good flow contrast into the duodenum. Dictated by: Gabriel Lanier MD 12/10/2020 10:18 Gabriel Lanier MD in OV 12/10/2020 10:18
--- NOTE | 2020-12-10 10:17 | HMH.ANESI ---
[facility] Anesthesia Record Part I Intake, IV Amount: 1,700 Estimated blood loss (mL): 10 Urine output (mL): 0 Blood Products used (#): none Blood Pressure: 146/75 SaO2: 94 Pulse Rate: 68 Respiratory Rate: 16 Temperature: 99.3 F Patient is:: Drowsy, Stable Stable to PACU at:: 10:15
--- NOTE | 2020-12-10 10:24 | HMH.OPNOTE ---
Date of procedure: 12/10/20 Pre-op Diagnosis:: Symptomatic gallstones Post-op Diagnosis:: Same Procedure performed:: Laparoscopic cholecystectomy with intraoperative cholangiogram Surgeon:: Grzegorz Darden MD WEB PRODUCTION MANAGER:: Phillip Pollock Anesthesia: GETJazmin Estimated blood loss (mL): 20 Clinical Note:: Patient is a 20-year-old female from [facility] referred by emergency department for gallbladder issues. She had actually been seen in the emergency department on 11/09/2019 with persistent epigastric pain radiating through to her back. SHe had undergone gallbladder ultrasound at that time which revealed multiple gallstones. She was managed as an outpatient. She did not have any issues for quite some time. She did have a and underwent by Dr. Fry on 09/12/2020. Subsequently she was seen in the emergency department on 10/18/2020 with epigastric and right upper quadrant pain. She had a CT scan which revealed no evidence of any calcified gallstones. Given the fact that her symptoms seem to be consistent with gallbladder she was referred for surgical consultation. She did undergo outpatient gallbladder ultrasound on 11/13/2020 which revealed gallbladder filled with gallstones with normal common bile duct. Patient states that she had an additional attack of symptoms after ER evaluation with epigastric pain and associated nausea and vomiting. Operative findings:: Patient had a somewhat thickened distended gallbladder. She had a laterally displaced cystic duct which was attenuated. Operative note:: Patient was taken to the operating room. She was given preoperative intravenous antibiotics. In the operating room she was placed in a supine position. General anesthesia was induced. Abdomen was prepped and draped in the standard surgical fashion. Subumbilical skin incision was made and while performing abdominal wall lift Veress needle was inserted. Ultimately with repositioning of the Veress needle adequate insufflation pressures were achieved and CO2 pneumoperitoneum was achieved to 15 mmHg. 11 mm optical trocar was inserted at the umbilicus. She was positioned in reverse Trendelenburg left side down. A couple 5 mm trochars were inserted in the right upper abdomen. 10 mm trocar was inserted in the epigastrium. Liver was elevated and gallbladder was grasped retracted anteriorly and superiorly over the dome of the liver. Infundibulum of the gallbladder was retracted anterior laterally. Blunt dissection was carried out the neck of the gallbladder bluntly incising the visceral peritoneum and sweeping fatty tissues inferiorly. Limited dissection was carried out laterally of the peritoneum using DILLAN ultrasonic robotic janak. There was noted to be some thin bile emanating. Inspection revealed what appeared to be laterally displaced cystic duct. To ensure that this was true cystic duct decision was made to perform intraoperative cholangiogram. Through a small 2 mm incision in the right upper abdomen taut cholangiocatheter introducer was inserted. Cholangiocatheter was manipulated into the duct ostomy were secured with a Hemoclip. Intraoperative cholangiogram was performed which revealed this to be a rather shortened cystic duct. Common duct revealed no evidence of any injury or compromise. Patient was then repositioned and cholangiocatheter was removed. Cystic duct was multiply clipped and sharply divided. Dissection was carried out identifying the cystic artery which was carefully coagulated and divided. Gallbladder was dissected free from the liver in a retrograde fashion using DILLAN ultrasonic harmonic janak. Gallbladder was placed within an Endo Catch retrieval device. It was removed from the peritoneal cavity via the umbilical trocar site which required some minor extension of the fascial incision for delivery. She was noted to have several moderate sized stones. Limited use of electrocautery was used on the liver bed to ensure h
--- NOTE | 2020-12-10 11:45 | SUR.PHASEII ---
SENT E-SCRIPT FOR NORCO AT HOME TO CLINIC PHARMACY, NO ORDERS FOR PAIN MED IN POST OP. PT TOLERATING WELL, GETTING DRESSED, AT BEDSIDE.
--- NOTE | 2020-12-10 12:15 | HMH.ANESII ---
[facility] Anesthesia Record Part II Discharge Time: 10:55 Destination: Surgical Day Care (OP Surgery) PACU nurse assessment reviewed?: Yes Patient Condition:: Good Anesthesia Complications:: None Swallowing reflex intact?: Yes Cyanosis?: No Blood Pressure: 122/77 Pulse Rate: 58 Temperature: 99.3 F Mental Status: Alert & Oriented Pain level:: 0 Nausea and/or vomitting:: None Intake, IV Amount: 0
== END 2020-12-10 11:46 | disposition home or self-care (01) ==
LOC: OR 07:02
PROVIDERS: PCP Nurse Practitioner; Visit Provider Surgery
PROC: 0FT44ZZ Resection of Gallbladder, Percutaneous Endoscopic Approach (ICD-10-PCS; CPT 47562; principal; 2020-12-10 08:30)
DX: K80.80 Other cholelithiasis without obstruction (principal); K21.9 Gastro-esophageal reflux disease without esophagitis; G43.909 Migraine, unspecified, not intractable, without status migrainosus; F41.9 Anxiety disorder, unspecified; F32.9 Major depressive disorder, single episode, unspecified; E03.9 Hypothyroidism, unspecified; Z90.49 Acquired absence of other specified parts of digestive tract; Z79.3 Long term (current) use of hormonal contraceptives
CPT/HCPCS: 47563; 74300; 81025; 96374; J2405; J2710

== ENCOUNTER 2022-10-26 09:37 | Emergency (ER) | payer MEDICAID, SELFPAY ==
[2022-10-26 10:50] VITALS: BP 132/91; PULSE 111; RESP 20; TEMP 37.3; O2SAT 99; BMI 40.9
[2022-10-26 10:51] LABS: UTC Strep Screen (Rapid) Positive (Negative)
--- NOTE | 2022-10-26 11:27 | EXP.UTC ---
Discharge Plan Disposition Patient Disposition: Home, Self-Care Condition: Good Prescriptions Prescriptions: New amoxicillin 875 mg tablet 875 mg PO Q12H Qty: 20 0RF fluticasone propionate [Flonase Allergy Relief] 50 mcg/actuation spray,suspension 1 - 2 spray intranasal DAILY Qty: 16 0RF Rx Instructions: administer into each nostril daily No Action Kyleena 17.5 mcg/24 hrs (5 yrs) 19.5 mg intrauterine device 19.5 mg INTRAUTERI DAILY Referrals Follow up/Referrals: Sebas Barrow MD [Primary Care Provider] - See instructions Activity Restrictions/Add. Instructions Additional Instructions/Restrictions: *Monitor Temp, Over the counter Motrin or Tylenol as directed/as needed Tylenol every 4 hours and Motrin every 6 hours (as long as your family doctor has told you that you can take it) for fever or pain. and straight to ER if unable to lower temp less than 101.0 after medication given *Warm salt water gargles may help to soothe the throat *Throat Lozenges? *Warm fluids like tea with honey may help to soothe the throat? *Sleep elevated *Humidifier/Vaporizer *If you did not take Penicillin shot or was unable to, start taking antibiotic immediately and make sure that you take it for the FULL length of time although you should start to feel better in 24-48 hours *change toothbrush and toothpaste 24-48 hours after starting to take antibiotics so you do not reinfect yourself Monitor Temp. Tylenol and/or Ibuprofen as needed. ER if fever is no less than 101 despite alternating Tylenol and Ibuprofen * Encourage fluids, water, Gatorade, powerade, pedialyte if infant/toddler/or child *Cold fluids, popsicles and ice cream may feel good on his throat Follow up IMMEDIATELY for new or worsening symptoms or no Noticeable improvement over the next 48-72 hours. 911 for difficulty breathing or swallowing Clinical Impressions Clinical Impression: Strep throat Instructions Patient Instructions: DI for Strep Throat Discharge ED Provider: Usha Jean Baptiste [facility] [place] HPI General Stated complaint: Fever, sore throat, headache, ear pain Mode of Arrival: Ambulatory Source of Information: Patient Limitations: No Limitations Time Seen by Provider: 10/26/22 11:27 Description of Symptoms (Recalled from Triage Doc. by RN): PATIENT C/O FEVER, SORE THROAT, EARS RINGING, HEADACHE AND CHILLS SINCE YESTERDAY HEENT Symptoms (Recalled from RN notes): Yes Resp Symptoms (Recalled from RN notes): No Skin Symptoms (Recalled from RN notes): No MS Symptoms (Recalled from RN notes): No Functional Status (Recalled from RN notes): WNL History of Present Illness Provider Complaint: Patient states that she started feeling bad yesterday States that she has been having sore throat, ringing in ears on and off, headache feeling achy and chills States that today her throat was hurting worse States that she took a medication last year for sinus infection that she had a reaction too thinks it may have been cefdnir Related Data Home Medications Medication Instructions Recorded Confirmed levonorgestrel 17.5 mcg/24 hrs 19.5 mg intrauterine DAILY 11/19/20 12/30/20 (5yrs) 19.5mg intrauterine device control (Kyleena) Previous Rx's Medication Instructions Recorded amoxicillin 875 mg tablet 875 mg PO Q12H #20 tabs 10/26/22 fluticasone propionate 50 1 - 2 spray intranasal DAILY #16 10/26/22 mcg/actuation nasal grams spray,suspension (Flonase Allergy Relief) Allergies Allergy/AdvReac Type Severity Reaction Status Date / Time No Known Allergies Allergy Verified 12/30/20 10:24 Worker's Comp Is this a Worker's Comp case?: No PFSH [facility] Disclaimer: The information contained in this section may have been updated after the patient was seen, as this information can be updated by other users. Medical History (Updated 10/26/22 @ 11:30 by Usha Jean Baptiste APRN) Asthma Hypertension Migraine Surgical H
[2022-10-26 11:34] VITALS: BP 132/91; PULSE 111; RESP 20; TEMP 37.3; O2SAT 99
== END 2022-10-26 11:36 | disposition home or self-care (01) ==
PROVIDERS: Emergency Provider Nurse Practitioner; PCP Internal Medicine Adolescent Medicine
DX: J02.0 Streptococcal pharyngitis (principal); R50.9 Fever, unspecified; R51.9 Headache, unspecified; I10 Essential (primary) hypertension; J45.909 Unspecified asthma, uncomplicated
CPT/HCPCS: 87880; 99204; 99212; G0463